=== PATIENT | female | born 1955 | race Caucasian/White ===

== ENCOUNTER → 2021-09-22 | Outpatient (CLI) | payer MEDICARE, SELFPAY ==
--- NOTE | 2021-09-22 12:31 | US_ITS ---
STUDY: THYROID ULTRASOUND REASON FOR EXAM: Female, 65 years old. left thyroid nodule incidental on ct. 1.7 cm -- CT done [facility] TECHNIQUE: Ultrasound evaluation of the thyroid was performed with real-time and static hensley-scale imaging. COMPARISON: None. FINDINGS: RIGHT LOBE: The right lobe of the thyroid gland measures 3.6 x 1.7 x 1.7 cm. There is a heterogeneous echotexture. There are no demonstrated solid, cystic or complex lesions. LEFT LOBE: The left lobe of the thyroid gland measures 4.4 x 1.2 x 1.1 cm. There is a heterogeneous echotexture. Nodule 1:14 x 13 x 15 mm solid isoechoic taller than wide ill-defined margin nodule with no echogenic foci (TR 4) in the mid left lobe for which ultrasound-guided biopsy is recommended. ISTHMUS: The isthmus measures 3 mm thick. . The regional lymph nodes are normal. US/Thyroid IMPRESSION: Thyroiditis with a 15 mm dominant nodule in left lobe for which ultrasound-guided biopsy is recommended. Electronically Signed: Omid Fraga MD at 15:52 EDT ,
== END | disposition home or self-care (01) ==
LOC: US 12:28
PROVIDERS: Referring Provider Internal Medicine; Visit Provider Internal Medicine
DX: E04.1 Nontoxic single thyroid nodule (principal)
CPT/HCPCS: 76536

== ENCOUNTER → 2021-10-27 | Outpatient (CLI) | payer MEDICARE, MEDICAID, SELFPAY ==
[2021-10-27 12:17] LABS: Bacteria 0 SEEN /hpf (None Seen); Red Blood Cells-Urine 0 SEEN /hpf (0-5); White Blood Cells 0 SEEN /hpf (0-5)
[2021-10-27 12:48] LABS: Absolute Lymphocyte Count 1.64 X10^3/uL (0.83-4.51); Basophil# 0.04 X10^3/uL; Basophil% 0.5 % (0-1); Eosinophil# 0.17 X10^3/uL; Hematocrit 35.4 % (37-47); Hemoglobin 11.5 g/dL (12.0-15.0); Lymphocyte # 1.64 X10^3/ul (0.83-4.51); Lymphocyte % 19.2 % (19-41); Mean Corp Hgb Conc 32.5 g/dL (32-36); Mean Corpuscular Hgb 28.9 pg (27.0-32.0); Mean Corpuscular Volume 88.9 fL (81-99); Mean Platelet Vol. 9.3 fl (6.2-12.0); Monocyte# 0.62 X10^3/uL; Monocyte% 7.3 % (0-10); NRBC Flagged by Analyzer 0 % (0-5); Neutrophil # 5.98 X10^3/uL (2.7-7.7); Neutrophil % 70.2 % (47-70); Platelet Count 282 K/mm3 (150-450); RBC Distribution Width CV 14.8 % (11.6-14.6); RBC Distribution Width SD 47.8 fl (35.1-43.9); Red Blood Count 3.98 M/mm3 (4.2-5.4); White Blood Count 8.5 K/mm3 (4.4-11.0)
[2021-10-27 13:20] LABS: Vitamin D,25 Hydroxy 56.7 ng/mL
[2021-10-27 13:28] LABS: Ferritin 73 ng/mL (8-252); Iron 40 ug/dL (50-170)
[2021-10-27 13:36] LABS: ALB/GLOB Ratio 0.9 RATIO (0.9-2.4); AST(SGOT) 17 U/L (15-37); Alanine Aminotransfer ALT/SGPT 24 U/L (13-56); Albumin, Serum 3.6 g/dL (3.2-5.0); Alkaline Phosphatase 75 U/L (45-117); Anion Gap 5 (5-15); BUN 16 mg/dL (7-18); BUN/Creat Ratio 22.1 RATIO (10-20); Calcium,Total 9.5 mg/dL (8.5-10.1); Chloride 107 mmol/L (98-107); Creatinine, Serum 0.72 mg/dL (0.55-1.02); EST Glomerular Filtration Rate 86 mL/min (>60); Est Glom Filt Rate - Afr Amer 103 mL/min (>60); Free T3 2.7 pg/mL (2.18-3.98); Globulin 3.9 g/dL (2.2-4.2); Glucose 116 mg/dL (74-106); Magnesium 2.1 mg/dL (1.6-2.6); Potassium 4.2 mmol/L (3.5-5.1); Protein, Total 7.5 g/dL (6.4-8.2); Sodium Level 140 mmol/L (136-145); T4 Free Direct 0.86 ng/dL (0.76-1.46); Thyroid Stim Hormone (TSH) 3.35 uIU/mL (0.358-3.74)
[2021-10-27 13:43] LABS: Color, Urine Yellow (Yellow); Glucose, Dipstick Normal (Normal); Ketone-Dipstick 5 mg/dl (Negative); Leukocyte Esterase-Dipstick 25 /ul (Negative); Nitrite-Dipstick Negative (Negative); Occult Blood-Urine Negative /ul (Negative); Protein-Dipstick 30 mg/dl (Negative); Specific Gravity, Urine 1.025 (1.002-1.030); Urine Clarity Clear (Clear); Urine Urobilinogen 1 mg/dl (Normal)
[2021-10-27 13:49] LABS: Microalbumin,Random Urine 37.4 mg/L (NO RANGE EST.); Microalbumin:Creatinine Ratio 9.7 mg/g CRE (<30 mg/g CRE)
[2021-10-27 14:08] LABS: Mucous, Urine 2+ /hpf (<or=2+); Squamous Epithelial Cells - UA 50-100 SEEN /hpf (5-10); Urine Bilirubin Dipstick 1 mg/dL (Negative)
== END | disposition home or self-care (01) ==
PROVIDERS: Internal Medicine; Referring Provider Nurse Practitioner Family; Visit Provider Nurse Practitioner Family
DX: E11.9 Type 2 diabetes mellitus without complications (principal); F31.9 Bipolar disorder, unspecified; E66.9 Obesity, unspecified; M19.90 Unspecified osteoarthritis, unspecified site; I10 Essential (primary) hypertension; E78.00 Pure hypercholesterolemia, unspecified; E04.1 Nontoxic single thyroid nodule
CPT/HCPCS: 36415; 80053; 81001; 82043; 82306; 82570; 82728; 83540; 83735; 84439; 84443; 84481; 85025

== ENCOUNTER 2022-12-04 11:09 | Emergency (ER) | payer MEDICARE, MEDICAID, SELFPAY ==
[2022-12-04 11:10] VITALS: BP 148/73; PULSE 90; RESP 18; TEMP 36.6; O2SAT 95
[2022-12-04 11:23] VITALS: BMI 30.3
--- NOTE | 2022-12-04 11:37 | RAD_ITS ---
STUDY: X-RAY - RIGHT TIBIA AND FIBULA REASON FOR EXAM: Female, 66 years old. Pain TECHNIQUE: 2 view(s) of the tibia and fibula were obtained. COMPARISON: None. FINDINGS: Normal visualized tibia. Normal visualized fibula. Degenerative changes of the knee joint. The soft tissue structures are unremarkable. RAD/Tibia & Fibula 2 Views IMPRESSION: Normal x-ray examination of the tibia and fibula. Degenerative changes of the knee joint. Electronically Signed: Samir Fish MD at 12:39 EDT ,
--- NOTE | 2022-12-04 11:37 | RAD_ITS ---
STUDY: X-RAY - PELVIS AND RIGHT HIP REASON FOR EXAM: Female, 66 years old. Pain following a recent injury. TECHNIQUE: 3 views of the pelvis and hip. COMPARISON: None. FINDINGS: There is a non-specific bowel gas pattern. Prior lower abdominal wall hernia repair. Surgical clips are seen in the left hemipelvis. This space narrowing and spondylosis in the lower lumbar spine. Normal bilateral iliac wings, sacroiliac joints and visualized sacrum. Normal bilateral superior and inferior pubic rami. Normal pubic symphysis. Normal bilateral ischial tuberosities. There is deformity of the right femoral head with subchondral geodes in the right femoral head and right acetabulum. Marked degree of degenerative changes with loss of joint space of the right hip. An element of a right avascular necrosis should be ruled out. RAD/HIP, UNI W/ Pelvis 2-3 Views IMPRESSION: Marked degree of degenerative changes with deformity of the right femoral head and the right hip joint as described. Avascular necrosis should be ruled out. Electronically Signed: Samir Fish MD at 12:39 EDT ,
--- NOTE | 2022-12-04 11:37 | VDLE_ITS ---
Reason For Study: RLE Pain RIGHT GSV is normal. CFV is compressible, spontaneous, phasic, competent and demonstrates normal augmentation. FV is compressible, spontaneous, phasic, competent and demonstrates normal augmentation. POP V is compressible, spontaneous, phasic, competent and demonstrates normal augmentation. T/P Trunk is compressible. PTV is compressible. RT PerV is compressible. Procedure This is a venous duplex using B-mode, color flow and spectral Doppler. Exam performed portable in ED. The exam was diagnostic. A preliminary report was called and/or faxed to Dr. FORTUNE / ED LIO Muro. VL/Venous Duplex US, Unilateral Interpretation Summary There is no evidence of right lower extremity deep vein thrombosis. Right great saphenous vein appears patent and compressible segmentally. Ordering Physician: Aris Fortune Referring Physician: Karen Chappell Performed By: Sami Packer RVT
[2022-12-04 11:58] LABS: Bacteria 0 SEEN /hpf (None Seen); Mucous, Urine 0 SEEN /hpf (<or=2+); Red Blood Cells-Urine 0 SEEN /hpf (0-5); Squamous Epithelial Cells - UA 0 SEEN /hpf (5-10); White Blood Cells 0 SEEN /hpf (0-5)
[2022-12-04 12:04] LABS: Color, Urine Yellow (Yellow); Glucose, Dipstick Normal (Normal); Ketone-Dipstick Negative (Negative); Leukocyte Esterase-Dipstick Negative /ul (Negative); Nitrite-Dipstick Negative (Negative); Occult Blood-Urine Negative /ul (Negative); Protein-Dipstick 15 mg/dl (Negative); Urine Bilirubin Dipstick Negative (Negative); Urine Clarity Clear (Clear); Urine Urobilinogen Normal (Normal)
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
[2022-12-04 12:16] LABS: Absolute Lymphocyte Count 1.94 X10^3/uL (0.83-4.51); Absolute Neutrophil Count 5.3 X10^3/uL (2.0-7.7); Basophil# 0.03 X10^3/uL; Basophil% 0.4 % (0-1); Eosinophil# 0.22 X10^3/uL; Eosinophils% 2.7 % (0-5); Hematocrit 32.4 % (37-47); Hemoglobin 11.4 g/dL (12.0-15.0); Lymphocyte # 1.94 X10^3/ul (0.83-4.51); Lymphocyte % 23.6 % (19-41); Mean Corp Hgb Conc 35.2 g/dL (32-36); Mean Corpuscular Hgb 30.4 pg (27.0-32.0); Mean Corpuscular Volume 86.4 fL (81-99); Mean Platelet Vol. 8.4 fl (6.2-12.0); Monocyte# 0.67 X10^3/uL; Monocyte% 8.2 % (0-10); NRBC Flagged by Analyzer 0 % (0-5); Neutrophil # 5.29 X10^3/uL (2.7-7.7); Neutrophil % 64.4 % (47-70); Platelet Count 263 K/mm3 (150-450); RBC Distribution Width CV 14.6 % (11.6-14.6); RBC Distribution Width SD 46.6 fl (35.1-43.9); Red Blood Count 3.75 M/mm3 (4.2-5.4); White Blood Count 8.2 K/mm3 (4.4-11.0)
[2022-12-04 12:29] LABS: Anion Gap 7 (5-15); BUN 17 mg/dL (7-18); BUN/Creat Ratio 21.2 RATIO (10-20); Calcium,Total 8.9 mg/dL (8.5-10.1); Chloride 106 mmol/L (98-107); EST Glomerular Filtration Rate 76 mL/min (>60); Est Glom Filt Rate - Afr Amer 91 mL/min (>60); Estimated Creatinine Clearance 56.45 ml/min; Glucose 134 mg/dL (74-106); Potassium 3.8 mmol/L (3.5-5.1); Sodium Level 140 mmol/L (136-145)
[2022-12-04] MEDS: diazePAM 2 MG Tablet PO (12:35)
--- NOTE | 2022-12-04 12:59 | CM.ED ---
Social Work SW met with patient and patient's daughter and introduced self and role as [facility] SW. Patient agreeable to speak to SW with her daughter present. SW inquired about patient's AD. Patient verified LW and HCPOA documents are completed; patient's daughter provided a copy of patient's HCPOA document which identified her daughter, Sabina, as HCPOA. SW made a copy and placed on patient's chart. Patient's daughter does not have patient's LW document with her. SW encouraged patient to bring in a copy when they are able so it may also be added to patient's chart, patient voiced understanding. Christine Senior CONTRACT MANAGEMENT SPECIALIST, DALIA
--- NOTE | 2022-12-04 14:00 | ED.RN ---
NURSE TO NURSE CALLED TO REBECA MOSER
--- NOTE | 2022-12-04 14:12 | CM.ED ---
Social Work Referral Source: MD Moore Referral Reason: NH assistance SW met with patient and patient's daughter and engaged them in conversation about patient's current living arrangements. Patient reports she is currently at [facility] and is utilizing wheelchair while she waits for a shoe to be made. Patient's daughter explained the patient has been waiting for months to have a shoe ordered and is concerned with patient's condition worsening. Patient's daughter also voiced concerns about patient needing support at as the web content & social media manager previously met with patient weekly, unsure why that stopped. SW provided emotional support and inquired about their knowledge of the [place] and need for SNF. Patient's daughter reports they have already been in contact with the [facility] and were discussing changing AL, however, they were waiting due to patient finally getting established with bilingual medical assistant locally. Patient states she does not want to go to their skilled side and has been provided therapy from [facility] in the past. Patient provided SW with permission to contact to speak with nursing. [facility] and spoke with LIO Alicia regarding patient's care. LIO Alicia reports the patient has access to the wheelchair as long as she needs it, however, she is unable to provide an update regarding patient's show explaining they were still processing the prescription. WINTER then inquired about services available. LIO Alicia unaware as she is newer to [facility], but states she will check with her supervisor testing to explore options. N2N [id number] ext [phone]. SW met with patient and family and reviewed conversation regarding SL. Patient and patient's daughter report understanding and frustration as patient has been waiting for this shoe for months. Patient reports having CM from [facility], Chris V. [phone], and explained they have also been in contact with her regarding patient's needs. SW continued to provide emotional support and encouraged patient and patient's daughter to continue to consider changing AL locations as well as follow up with [facility] if they do not feel patient's needs are being met. Patient and patient's daughter reports understanding and report no other needs. SW updated care team. Plan: return to [facility] Christine MEDINA, DALIA
== END 2022-12-04 14:20 | disposition home or self-care (01) ==
PROVIDERS: Emergency Provider Emergency Medicine; PCP Internal Medicine; Visit Provider Emergency Medicine
DX: M25.551 Pain in right hip (principal); E11.9 Type 2 diabetes mellitus without complications; M62.838 Other muscle spasm; E78.00 Pure hypercholesterolemia, unspecified; I10 Essential (primary) hypertension; Z87.891 Personal history of nicotine dependence; Z79.899 Other long term (current) drug therapy; Z79.82 Long term (current) use of aspirin; Z79.84 Long term (current) use of oral hypoglycemic drugs; M79.604 Pain in right leg
CPT/HCPCS: 73502; 73590; 80048; 81001; 85025; 93971; 99283